=== PATIENT | male | born 1995 | race Caucasian/White ===

== ENCOUNTER 2017-11-05 02:18 | Emergency (ER) | payer OTHER ==
[~2017-11-05] VITALS: Ht 188 cm; Wt 76.1 kg
[2017-11-05 02:23] VITALS: TEMP 37; Ht 188 cm; Wt 76.1 kg
[2017-11-05] MEDS ORDERED: DiphenhydrAMINE HCL 50 MG/ML VIAL ONE (02:25)
[2017-11-05] MEDS ORDERED: DIPH25CA65 PO (03:06)
[2017-11-05] MEDS ORDERED: EPP3/2 IM (03:06)
[2017-11-05 06:20] VITALS: BP 110/61; PULSE 49; O2SAT 97
--- NOTE | 2017-11-05 22:48 | EMERGENCY ROOM VISIT NOTE ---
History Report prepared by Usha: Eveline López Under the Supervision of: Dr. Nicole Perez D.O. First contact with patient: 02:24 Chief Complaint: ALLERGIC REACTION Stated Complaint: ALLERGIC REACTION Nursing Triage Summary: Patient ate popcorn that unknowningly had cashews in it. Patient is allergic to Tree Nuts. Patient noted throat swelling and mild SOB. Patient took Epi Pen at 0150 and EMS gave 50 mg Benadryl. History of Present Illness The patient is a 22 year old male who presents to the Emergency Room with complaints of an episode of an allergic reaction starting an hour ago. The patient states that he is allergic to nuts and noticed that he accidentally ate something with nuts in it tonight. He reports that the immediately went and got his EpiPen. He reports that when he felt his throat start to swell and he became short of breath, he used it and called 911. He notes that he has only used it once before when he was 12. The patient complains of feeling fatigued. The patient denies itching and a rash. Source of History: patient Onset: an hour ago Position: other (global) Timing: other (episode) Modifying Factors (Relieving): other (EpiPen) Associated Symptoms: + SOB, No rash Note: The patient denies itching. Review of Systems See HPI for pertinent positives & negatives. A total of 10 systems reviewed and were otherwise negative. Past Medical & Surgical Medical Problems: (1) Tree nut allergy Family History No pertinent family history Social History Smoking Status: Never Smoker Marital Status: in relationship Housing Status: lives with significant other Occupation Status: [employer] Current/Historical Medications Scheduled PRN Diphenhydramine Hcl (Benadryl Allergy), 2 CAP PO UD PRN for Allergic Reaction Epinephrine (Epipen), 0.3 MG IM UD PRN for Allergic Reaction Allergies Uncoded Allergies: TREE NUTS (Allergy, Unknown, ANAPHYLAXIS, 11/05/17) Physical Exam Vital Signs Date Time Temp Pulse Resp B/P (MAP) Pulse Ox O2 Delivery O2 Flow Rate FiO2 11/05/17 06:20 49 18 110/61 97 11/05/17 06:05 54 17 96 11/05/17 06:01 124/63 11/05/17 05:35 56 17 97 11/05/17 05:30 110/61 11/05/17 05:05 53 19 97 11/05/17 04:35 53 18 95 11/05/17 04:30 116/44 11/05/17 04:05 53 18 97 11/05/17 04:00 104/51 11/05/17 03:48 60 18 97 11/05/17 03:39 104/52 11/05/17 03:18 62 19 96 11/05/17 02:48 63 20 98 11/05/17 02:40 64 11/05/17 02:27 Room Air 11/05/17 02:23 37.0 82 16 142/61 100 Room Air Physical Exam HEENT: Head - normocephalic and atraumatic Pupils are equal, round, and reactive to light. Extraocular eye muscles are intact, and sclera are anicteric. Nose - moist nasal mucosa without discharge. Mouth - moist buccal mucosa. Slight uvular edema. Oropharynx is nonerythematous and there is no tonsillar exudate or edema noted. Neck: Supple; no JVD, nuchal rigidity, cervical lymphadenopathy. Heart: Regular rate and rhythm. There is a normal S1 and S2 with no murmurs, clicks, or gallops appreciated. Lungs: Clear to auscultation bilaterally with no wheezes, rales, or rhonchi. Abdomen: Soft, completely nontender, nondistended, with good bowel sounds. There are no palpable pulsatile masses or hepatosplenomegaly. There is no guarding, rigidity, or rebound noted. Extremities: No evidence of cyanosis, clubbing, or edema. There are easily palpable peripheral pulses. Skin: warm and dry with good turgor and no rashes. Medical Decision & Procedures ED Course 0237: Past medical records reviewed. The patient was evaluated in room A3. A complete history and physical exam was performed. He was observed on a surveillance monitor and pulse oximeter. 0428: I reevaluated the patient. He was asleep and his vitals are stable. 0530 the patient is resting comfortably at this time and has no further symptoms of an allergic reaction. He had no rebound effect.: 0611: Upon reevaluation, the patient is resting comfortably. I reviewed discharge instructions and a treatment plan. He verbalized agreement of the treatment plan. The patient was discharged home. Medical Decision The patient is a 22 year old male who presents to the Emergency Room with complaints of an episode of an allergic reaction starting an hour ago. Differential diagnoses include allergic reaction, anaphylaxis. This is a 22-year-old male patient who has a history of not allergy that he believes he was exposed to some nuts earlier this evening. He suffered have symptoms of allergic reaction that got slightly worse with some feeling that the back of his throat was swelling. He used his EpiPen at home and came to the emergency department. Throughout his stay here in the emergency department , he remained completely stable. He had no further allergic reaction symptoms. Medication Reconcilliation Current Medication List: was personally reviewed by me Blood Pressure Screening Patient's blood pressure: Normal blood pressure Blood pressure disposition: Did not require urgent referral Impression Primary Impression: Allergic reaction Scribe Attestation The scribe's documentation has been prepared under my direction and personally reviewed by me in its entirety. I confirm that the note above accurately reflects all work, treatment, procedures, and medical decision making performed by me. Departure Information Dispostion Home / Self-Care Forms HOME CARE DOCUMENTATION FORM, IMPORTANT VISIT INFORMATION Patient Instructions My [facility] Additional Instructions Rest. You may continue to use benadryl for further symptoms. Carry epi pen with you at all times Problem Qualifiers Primary Impression: Allergic reaction Encounter type: initial encounter Qualified Codes: T78.40XA - Allergy, unspecified, initial encounter
== END 2017-11-05 06:20 | disposition home or self-care (01) ==
LOC: C.EDB 02:20 → C.EDA 06:20
DX: T78.40XA Allergy, unspecified, initial encounter (principal); X58.XXXA Exposure to other specified factors, initial encounter